=== PATIENT | female | born 1960 | race African-American/Black ===

== ENCOUNTER 2022-08-20 15:00 | Inpatient (IN) | payer SELFPAY ==
[2022-08-20] MEDS ORDERED: IPRATROPIUM-ALBUTEROL 3 ML NEB INHALATION STA (15:23)
[2022-08-20] MEDS ORDERED: MAGNESIUM SULFATE-D5W PMX 1 GM in DEXTROSE/WATER 1 100ML.BAG IVPB STA (15:23)
[2022-08-20 15:44] LABS: Basophils % (A) 1 %; Eosinophils % (A) 0 %; HCT 39.4 % (34.0-46.0); HGB 13.7 gm/dL (11.4-16.0); Lymphocytes # (A) 0.7 k/uL (1.0-4.8); Lymphocytes % (A) 12 %; MCH 27.5 pg (25.0-35.0); MCHC 34.6 g/dL (31.0-37.0); MCV 79.5 fL (80.0-100.0); Mean Platelet Volume 8.6; Monocytes # (A) 0.4 k/uL (0-1.0); Monocytes % (A) 7 %; Neutrophils # (A) 4.9 k/uL (1.3-7.7); Neutrophils % (A) 77 %; Platelet Count 184 k/uL (150-450); RBC 4.96 m/uL (3.80-5.40); RDW 14.4 % (11.5-15.5); WBC 6.4 k/uL (3.8-10.6)
[2022-08-20 15:51] LABS: ALT 43 U/L (4-34); AST 69 U/L (14-36); African American GFR (CKD) >90 (>60 ml/min/1.73 sqM); Albumin 4.2 g/dL (3.5-5.0); Alkaline Phosphatase 103 U/L (38-126); Anion Gap 8 mmol/L; Blood Urea Nitrogen 12 mg/dL (7-17); Calcium 8.9 mg/dL (8.4-10.2); Carbon Dioxide 28 mmol/L (22-30); Chloride 103 mmol/L (98-107); Glucose 113 mg/dL (74-99); Magnesium 1.9 mg/dL (1.6-2.3); Non-African American GFR(CKD) >90 (>60 ml/min/1.73 sqM); Potassium 3.7 mmol/L (3.5-5.1); Sodium 139 mmol/L (137-145); Total Bilirubin 0.3 mg/dL (0.2-1.3)
[2022-08-20 15:53] LABS: Partial Thromboplastin Time 24.9 sec (22.0-30.0); Prothrombin Time 10.3 sec (9.0-12.0)
--- NOTE | 2022-08-20 15:55 | XR ---
EXAMINATION TYPE: XR chest 2V DATE OF EXAM: 08/20/2022 COMPARISON: 12/20/2013 INDICATION: Difficulty in breathing x3 days TECHNIQUE: Frontal and lateral views of the chest are obtained. FINDINGS: The heart size is normal. The pulmonary vasculature is normal. Hyperinflation and flattening diaphragms compatible with COPD. Minimal bilateral costophrenic angle p leural effusions are present.. IMPRESSION: 1. Minimal bilateral pleural effusions. 2. COPD
--- NOTE | 2022-08-20 15:58 | ED ---
SOB HPI - General Chief Complaint: Shortness of Breath Stated Complaint: SOB Time Seen by Provider: 08/20/22 15:00 Source: patient, family, EMS, RN notes reviewed Mode of arrival: EMS Limitations: no limitations - History of Present Illness Initial Comments: 61-year-old female history of COPD who presents with complaints of 2 days of shortness of breath and progressively worse cough with green phlegm she's had fevers chills sweats no overt chest pain she has lightheadedness and dizziness when she tries to walk she also admits to decreased oral intake over the past couple days. Recent exposure to upper respiratory infection unsure whether: Bed at this time. She received IV slight Medrol as well as 2 DuoNeb treatments and route by paramedics. She is feeling slightly better. MD Complaint: shortness of breath, cough - Related Data Home Medications Medication Instructions Recorded Confirmed Guaifenesin/Dextromethorphan 20 ml PO Q4H PRN 08/20/22 08/20/22 [Robitussin Cough-Chest Dm Liq] Zinc Gluconate [Zinc] 50 mg PO DAILY 08/20/22 08/20/22 Allergies Allergy/AdvReac Type Severity Reaction Status Date / Time No Known Allergies Allergy Verified 08/20/22 15:20 Review of Systems ROS Statement: Those systems with pertinent positive or pertinent negative responses have been documented in the HPI. ROS Other: All systems not noted in ROS Statement are negative. Past Medical History Past Medical History: No Reported History Past Surgical History: No Surgical Hx Reported Past Psychological History: No Psychological Hx Reported Smoking Status: Current some day smoker Past Alcohol Use History: None Reported Past Drug Use History: Marijuana General Exam - General Exam Comments Initial Comments: This is a well-developed thin appearing female who is awake alert oriented 4 Limitations: no limitations General appearance: alert, anxious, in distress Head exam: Present: atraumatic, normocephalic, normal inspection Eye exam: Present: normal appearance, PERRL, EOMI. Absent: scleral icterus, conjunctival injection, periorbital swelling ENT exam: Present: mucous membranes dry Neck exam: Present: normal inspection, full ROM, other (No stridor JVD or bruits). Absent: tenderness, meningismus, lymphadenopathy Respiratory exam: Present: wheezes, accessory muscle use, decreased breath sounds, prolonged expiratory. Absent: respiratory distress, rales, rhonchi, s tridor Cardiovascular Exam: Present: regular rate, normal rhythm, normal heart sounds. Absent: systolic murmur, diastolic murmur, rubs, gallop, clicks GI/Abdominal exam: Present: soft, normal bowel sounds. Absent: distended, tenderness, guarding, rebound, rigid Extremities exam: Present: normal inspection, full ROM, normal capillary refill. Absent: tenderness, pedal edema, joint swelling, calf tenderness Back exam: Present: normal inspection Neurological exam: Present: alert, oriented X3, CN II-XII intact Psychiatric exam: Present: normal affect, normal mood Skin exam: Present: warm, dry, intact, normal color. Absent: rash Course Vital Signs 08/20/22 08/20/22 08/20/22 15:03 16:52 16:56 Temperature 97.8 F Pulse Rate 98 97 Respiratory 30 H 30 H 32 H Rate Blood Pressure 152/109 156/108 O2 Sat by Pulse 100 97 89 L Oximetry 08/20/22 08/20/22 16:59 17:09 Temperature Pulse Rate 97 95 Respiratory Rate Blood Pressure O2 Sat by Pulse Oximetry - Reevaluation(s) Reevaluation #1: 08/20/22 17:29 Evaluation the patient after initial treatment shows minimal improvement. Medical Decision Making - Lab Data Result diagrams: 08/20/22 15:14 08/20/22 15:14 Lab Results 08/20/22 08/20/22 08/20/22 Range/Units 15:14 15:14 15:14 WBC 6.4 (3.8-10.6) k/uL RBC 4.96 (3.80-5.40) m/uL Hgb 13.7 (11.4-16.0) gm/dL Hct 39.4 (34.0-46.0) % MCV 79.5 L (80.0-100.0) fL MCH 27.5 (25.0-35.0) pg MCHC 34.6 (31.0-37.0) g/dL RDW 14.4 (11.5-15.5) % Plt Count 184 (150-450) k/uL MPV 8.6 Neutrophils % 77 % Lymphocytes % 12 % Monocytes % 7 % Eosinophils % 0 % Basophils % 1 % Neutrophils # 4.9 (1.3-7.7) k/uL Lymphocytes # 0.7 L (1.0-4.8) k/uL Monocytes # 0.4 (0-1.0) k/uL Eosinophils # 0.0 (0-0.7) k/uL Basophils # 0.0 (0-0.2) k/uL PT 10.3 (9.0-12.0) sec INR 1.0 (<1.2) APTT 24.9 (22.0-30.0) sec D-Dimer 0.29 (<0.60) mg/L FEU Sodium 139 (137-145) mmol/L Potassium 3.7 (3.5-5.1) mmol/L Chloride 103 (98-107) mmol/L Carbon Dioxide 28 (22-30) mmol/L Anion Gap 8 mmol/L BUN 12 (7-17) mg/dL Creatinine 0.55 (0.52-1.04) mg/dL Est GFR (CKD-EPI)AfAm >90 (>60 ml/min/1.73 sqM) Est GFR (CKD-EPI)NonAf >90 (>60 ml/min/1.73 sqM) Glucose 113 H (74-99) mg/dL Plasma Lactic Acid Arturo (0.7-2.0) mmol/L Calcium 8.9 (8.4-10.2) mg/dL Magnesium 1.9 (1.6-2.3) mg/dL Total Bilirubin 0.3 (0.2-1.3) mg/dL AST 69 H (14-36) U/L ALT 43 H (4-34) U/L Alkaline Phosphatase 103 (38-126) U/L Troponin I (0.000-0.034) ng/mL NT-Pro-B Natriuret Pep pg/mL Total Protein 7.0 (6.3-8.2) g/dL Albumin 4.2 (3.5-5.0) g/dL Coronavirus (PCR) (Not Detectd) Influenza Type A RNA (Not Detectd) Influenza Type B (PCR) (Not Detectd) 08/20/22 08/20/22 08/20/22 Range/Units 15:14 15:14 15:14 WBC (3.8-10.6) k/uL RBC (3.80-5.40) m/uL Hgb (11.4-16.0) gm/dL Hct (34.0-46.0) % MCV (80.0-100.0) fL MCH (25.0-35.0) pg MCHC (31.0-37.0) g/dL RDW (11.5-15.5) % Plt Count (150-450) k/uL MPV Neutrophils % % Lymphocytes % % Monocytes % % Eosinophils % % Basophils % % Neutrophils # (1.3-7.7) k/uL Lymphocytes # (1.0-4.8) k/uL Monocytes # (0-1.0) k/uL Eosinophils # (0-0.7) k/uL Basophils # (0-0.2) k/uL PT (9.0-12.0) sec INR (<1.2) APTT (22.0-30.0) sec D-Dimer (<0.60) mg/L FEU Sodium (137-145) mmol/L Potassium (3.5-5.1) mmol/L Chloride (98-107) mmol/L Carbon Dioxide (22-30) mmol/L Anion Gap mmol/L BUN (7-17) mg/dL Creatinine (0.52-1.04) mg/dL Est GFR (CKD-EPI)AfAm (>60 ml/min/1.73 sqM) Est GFR (CKD-EPI)NonAf (>60 ml/min/1.73 sqM) Glucose (74-99) mg/dL Plasma Lactic Acid Arturo 1.0 (0.7-2.0) mmol/L Calcium (8.4-10.2) mg/dL Magnesium (1.6-2.3) mg/dL Total Bilirubin (0.2-1.3) mg/dL AST (14-36) U/L ALT (4-34) U/L Alkaline Phosphatase (38-126) U/L Troponin I <0.012 (0.000-0.034) ng/mL NT-Pro-B Natriuret Pep 125 pg/mL Total Protein (6.3-8.2) g/dL Albumin (3.5-5.0) g/dL Coronavirus (PCR) (Not Detectd) Influenza Type A RNA (Not Detectd) Influenza Type B (PCR) (Not Detectd) 08/20/22 08/20/22 Range/Units 15:33 15:33 WBC (3.8-10.6) k/uL RBC (3.80-5.40) m/uL Hgb (11.4-16.0) gm/dL Hct (34.0-46.0) % MCV (80.0-100.0) fL MCH (25.0-35.0) pg MCHC (31.0-37.0) g/dL RDW (11.5-15.5) % Plt Count (150-450) k/uL MPV Neutrophils % % Lymphocytes % % Monocytes % % Eosinophils % % Basophils % % Neutrophils # (1.3-7.7) k/uL Lymphocytes # (1.0-4.8) k/uL Monocytes # (0-1.0) k/uL Eosinophils # (0-0.7) k/uL Basophils # (0-0.2) k/uL PT (9.0-12.0) sec INR (<1.2) APTT (22.0-30.0) sec D-Dimer (<0.60) mg/L FEU Sodium (137-145) mmol/L Potassium (3.5-5.1) mmol/L Chloride (98-107) mmol/L Carbon Dioxide (22-30) mmol/L Anion Gap mmol/L BUN (7-17) mg/dL Creatinine (0.52-1.04) mg/dL Est GFR (CKD-EPI)AfAm (>60 ml/min/1.73 sqM) Est GFR (CKD-EPI)NonAf (>60 ml/min/1.73 sqM) Glucose (74-99) mg/dL Plasma Lactic Acid Arturo (0.7-2.0) mmol/L Calcium (8.4-10.2) mg/dL Magnesium (1.6-2.3) mg/dL Total Bilirubin (0.2-1.3) mg/dL AST (14-36) U/L ALT (4-34) U/L Alkaline Phosphatase (38-126) U/L Troponin I (0.000-0.034) ng/mL NT-Pro-B Natriuret Pep pg/mL Total Protein (6.3-8.2) g/dL Albumin (3.5-5.0) g/dL Coronavirus (PCR) Not Detected (Not Detectd) Influenza Type A RNA Detected H (Not Detectd) Influenza Type B (PCR) Not Detected (Not Detectd) - EKG Data -: EKG Interpreted by Me EKG Comments: EKG interpreted by me shows a sinus rhythm with her. Interval rate was 95. Interval 100 QRS duration 77 QT since QTC 331/334 borderline right asked deviation nonspecific ST configuration artifact present. - Radiology Data Interpreted by me: I did interpret the imaging wished demonstrate no definitive evidence of acute processes. Critical Care Time Critical Care Time: Yes Total Critical Care Time: 39 Critical Care Time: Critical care time includes initial presentation with history physical labs x- rays discussed with paramedics upon arrival discussed with patient family members upon arrival repeated evaluations the patient response to therapy review of old charting was available discussed with the main physician admission orders and documentation of the above Disposition Clinical Impression: Acute exacerbation of chronic obstructive pulmonary disease, Influenza A, Hypoxemia Disposition: ADMITTED IP TO THIS [facility] Condition: Fair Referrals: None,Stated [Primary Care Provider] - 1-2 days Decision Date: 08/20/22 Decision Time: 17:32
[2022-08-20] MEDS ORDERED: LORazepam 1 MG TAB PO STA (16:00)
[2022-08-20] MEDS ORDERED: guaiFENesin-Coden 100-10MG/5ML 10 ML CUP PO PRN (17:33)
[2022-08-20] MEDS ORDERED: NALOXONE 0.4 MG/ML 1 ML VIAL IVP PRN (17:33)
[2022-08-20] MEDS: methylPREDNISolone SOD SUCCI 125 MG/2 ML VIAL IV SCH (17:42)
[2022-08-20] MEDS: DOXYCYCLINE 100 MG CAP PO SCH (20:35)
[2022-08-21] MEDS: IPRATROPIUM-ALBUTEROL 3 ML NEB INHALATION PRN ×3 (00:49→11:18)
[2022-08-21] MEDS: methylPREDNISolone SOD SUCCI 125 MG/2 ML VIAL IV SCH ×5 (02:00→23:23)
[2022-08-21] MEDS: ACETAMINOPHEN TAB 325 MG TAB PO PRN (03:01)
[2022-08-21] MEDS ORDERED: guaiFENesin-DM 100-10MG/5ML 10 ML CUP PO PRN (06:28)
[2022-08-21] MEDS: ZINC SULFATE 220 MG CAP PO SCH (08:33)
[2022-08-21] MEDS: DOXYCYCLINE 100 MG CAP PO SCH ×2 (08:33→20:54)
[2022-08-21 10:16] VITALS: BMI 18.6
[2022-08-21] MEDS: HYDROcodone/APAP 5-325MG 1 EACH TAB PO PRN ×2 (12:06→20:59)
[2022-08-21] MEDS: OSELTAMIVIR 75 MG CAP PO SCH ×2 (12:09→20:54)
--- NOTE | 2022-08-21 12:29 | P.HPIM ---
History of Present Illness 61-year-old gentleman female came in with a known history of COPD came in with compensative shortness of breath which is going on for 2 days patient is found to have influenza A patient is on the high flow nasal cannula/ airvo oxygen at this time, patient usually doesn't wear oxygen patient to quit smoking does smoke occasionally 1 cigarettes here and there. Patient doesn't take any home medications. Patient is afebrile doesn't have any leukocytosis. Chest x-ray showed minimal bilateral pleural effusions and the emphysematous changes. REVIEW OF SYSTEMS: CONSTITUTIONAL: No fever, no malaise, no fatigue. HEENT: No recent visual problems or hearing problems. Denied any sore throat. CARDIOVASCULAR: No chest pain, orthopnea, PND, no palpitations, no syncope. PULMONARY: no hemoptysis. GASTROINTESTINAL: No diarrhea, no nausea, no vomiting, no abdominal pain. NEUROLOGICAL: No headaches, no weakness, no numbness. HEMATOLOGICAL: Denies any bleeding or petechiae. GENITOURINARY: Denies any burning micturition, frequency, or urgency. MUSCULOSKELETAL/RHEUMATOLOGICAL: Denies any joint pain, swelling, or any muscle pain. ENDOCRINE: Denies any polyuria or polydipsia. The rest of the 14-point review of systems is negative. PHYSICAL EXAMINATION: GENERAL: The patient is alert and oriented x3, not in any acute distress. Well developed, well nourished. HEENT: Pupils are round and equally reacting to light. EOMI. No scleral icterus. No conjunctival pallor. Normocephalic, atraumatic. No pharyngeal erythema. No thyromegaly. CARDIOVASCULAR: S1 and S2 present. No murmurs, rubs, or gallops. PULMONARY: Diminished air entry into bilateral lung lewis no wheezing or crackles. ABDOMEN: Soft, nontender, nondistended, normoactive bowel sounds. No palpable organomegaly. MUSCULOSKELETAL: No joint swelling or deformity. EXTREMITIES: No cyanosis, clubbing, or pedal edema. NEUROLOGICAL: Gross neurological examination did not reveal any focal deficits. SKIN: No rashes. Assessment and plan -Acute hypoxic respiratory failure secondary to severe COPD exacerbation patient is on empiric antibiotic for secondary bacterial infection patient is also on Tamiflu continue with respiratory support wean off oxygen as tolerated continue with systemic steroids., Inhalational treatments. -Tracheobronchitis mostly while possible TIA of bacteremia cannot be excluded -Nicotine use: Counseling was provided patient a very quit smoking with does smoke occasionally DVT prophylaxis: Lovenox GI prophylaxis: Pepcid Past Medical History Past Medical History: No Reported History, Asthma Additional Past Medical History / Comment(s): COVID 19 infection (february 2022) and she is vaccinated with JJ x1 Past Surgical History: No Surgical Hx Reported Past Psychological History: No Psychological Hx Reported Smoking Status: Current some day smoker (started smoking at the age of 19 and s he was smoking 1/2 PPD and her last smoke was 3 days ago) Past Alcohol Use History: None Reported Past Drug Use History: Marijuana (smoke 1 joint every PM) Medications and Allergies Home Medications Medication Instructions Recorded Confirmed Type Guaifenesin/Dextromethorphan 20 ml PO Q4H PRN 08/20/22 08/20/22 History [Robitussin Cough-Chest Dm Liq] Zinc Gluconate [Zinc] 50 mg PO DAILY 08/20/22 08/20/22 History Allergies Allergy/AdvReac Type Severity Reaction Status Date / Time No Known Allergies Allergy Verified 08/20/22 15:20 Physical Exam Vitals: Vital Signs Temp Pulse Pulse Resp BP BP Pulse Ox 08/21/22 12:13 102 H 29 H 131/89 97 08/21/22 11:31 98 08/21/22 11:19 85 97 08/21/22 08:41 28 H 97 08/21/22 08:28 93 28 H 146/101 99 08/21/22 07:20 82 08/21/22 03:30 08/21/22 03:10 98 F 86 28 H 171/111 100 08/21/22 01:50 08/21/22 01:27 08/21/22 01:10 100 08/21/22 00:50 96 08/21/22 00:00 97.7 F 85 20 113/78 100 08/20/22 20:00 97.4 F L 96 26 H 153/112 99 08/20/22 19:34 08/20/22 18:40 08/20/22 18:00 92 27 H 153/118 97 08/20/22 17:09 95 08/20/22 16:59 97 08/20/22 16:56 32 H 89 L 08/20/22 16:52 97 30 H 156/108 97 08/20/22 15:03 97.8 F 98 30 H 152/109 100 FiO2 08/21/22 12:13 08/21/22 11:31 08/21/22 11:19 35 08/21/22 08:41 08/21/22 08:28 08/21/22 07:20 40 08/21/22 03:30 40 08/21/22 03:10 08/21/22 01:50 40 08/21/22 01:27 35 08/21/22 01:10 08/21/22 00:50 40 08/21/22 00:00 08/20/22 20:00 08/20/22 19:34 40 08/20/22 18:40 40 08/20/22 18:00 08/20/22 17:09 08/20/22 16:59 08/20/22 16:56 08/20/22 16:52 08/20/22 15:03 Intake and Output 08/20/22 08/21/22 08/21/22 22:59 06:59 14:59 Intake Total 600 Balance 600 Intake: Oral 600 Other: Voiding Method Bedpan Bedpan Toilet # Voids 1 Weight 52.163 kg 52.163 kg Results CBC & Chem 7: 08/20/22 15:14 08/20/22 15:14 Labs: Abnormal Lab Results - Last 24 Hours (Table) 08/20/22 08/20/22 08/20/22 Range/Units 15:14 15:14 15:33 MCV 79.5 L (80.0-100.0) fL Lymphocytes # 0.7 L (1.0-4.8) k/uL Glucose 113 H (74-99) mg/dL AST 69 H (14-36) U/L ALT 43 H (4-34) U/L Influenza Type A RNA Detected H (Not Detectd)
--- NOTE | 2022-08-21 13:48 | P.CNPUL ---
History of Present Illness Consult date: 08/21/22 Reason for consult: dyspnea History of present illness: A 61-year-old -[place] female patient, chronic smoker with known history of COPD with is not using any form of maintenance as for medications on outpatient basis. The patient has been smoking since young age and her last cigarette was she days ago. She does not utilize home O2. She states that her condition was essentially stable and she was having some mild exertional dyspnea still around several family members at home came down with a flu. The patient herself felt sick around 3 days ago and condition progressively got worse and currently she is coming into the hospital with increasing dyspnea, chest tightness and wheezing. She was found to be in significant respiratory distress. Initially placed on a BiPAP and currently she is on high flow oxygen at 50 L with an FiO2 of 35%. She is feeling better although she is still bronchospastic and wheezy. She has a congested cough. No altered mentation. Chest wall pain has been so due to coughing. The patient had a chest x-ray that showed hyperinflation. No acute airspace disease. ProBNP is nonelevated. Card iac enzymes are normal. The WBC count at 6.4 with a hemoglobin 13.7 and a platelet count of 184. D-dimer is at 0.29. Normal coagulation profile. Normal electrolytes. Normal renal function. Her influenza a was positive by PCR. Covid 19 testing is negative and the patient has received Covid 19 vaccination 1 which was in the form of a [employer]. She was infected also with Covid 19 in the past. RSV has not been checked yet. Review of Systems Constitutional: Reports fatigue, Reports weakness Eyes: denies as per HPI, denies blurred vision, denies bulging eye, denies decreased vision, denies diplopia, denies discharge, denies dry eye, denies irritation, denies itching, denies pain, denies photophobia, denies loss of peripheral vision, denies loss of vision, denies tunnel vision/blind spots Ears: deny: decreased hearing, ear discharge, earache, tinnitus Ears, nose, mouth and throat: Reports as per HPI Breasts: absent: as per HPI, change in shape, gynecomastia, masses, nipple discharge, pain, skin changes, swelling Cardiovascular: Reports decreased exercise tolerance, Reports dyspnea on exertion Respiratory: Reports cough, Reports dyspnea, Reports wheezing Gastrointestinal: Reports as per HPI Genitourinary: Reports as per HPI Menstruation: Reports as per HPI Musculoskeletal: Reports as per HPI Musculoskeletal: absent: ankle pain, ankle stiffness, ankle swelling, as per HPI, elbow pain, elbow stiffness, elbow swelling, foot pain, foot stiffness, foot swelling, hand pain, hand stiffness, hand swelling, hip pain, hip stiffness, hip swelling, knee pain, knee stiffness, knee swelling, shoulder pain, shoulder stiffness, shoulder swelling, wrist pain, wrist stiffness, wrist swelling Neurological: Reports as per HPI Psychiatric: Reports as per HPI Endocrine: Reports as per HPI Hematologic/Lymphatic: Reports as per HPI Allergic/Immunologic: Reports as per HPI Past Medical History Past Medical History: No Reported History, Asthma Additional Past Medical History / Comment(s): COVID 19 infection (february 2022) and she is vaccinated with JJ x1 Past Surgical History: No Surgical Hx Reported Past Psychological History: No Psychological Hx Reported Smoking Status: Current some day smoker (started smoking at the age of 19 and she was smoking 1/2 PPD and her last smoke was 3 days ago) Past Alcohol Use History: None Reported Past Drug Use History: Marijuana (smoke 1 joint every PM) Medications and Allergies Home Medications Medication Instructions Recorded Confirmed Type Guaifenesin/Dextromethorphan 20 ml PO Q4H PRN 08/20/22 08/20/22 History [Robitussin Cough-Chest Dm Liq] Zinc Gluconate [Zinc] 50 mg PO DAILY 08/20/22 08/20/22 History Allergies Allergy/AdvReac Type Severity Reaction Status Date / Time No Known Allergies Allergy Verified 08/20/22 15:20 Physical Exam Vitals: Vital Signs Temp Pulse Pulse Resp BP BP Pulse Ox 08/21/22 11:31 98 08/21/22 11:19 85 97 08/21/22 08:41 28 H 97 08/21/22 08:28 93 28 H 146/101 99 08/21/22 07:20 82 08/21/22 03:30 08/21/22 03:10 98 F 86 28 H 171/111 100 08/21/22 01:50 08/21/22 01:27 08/21/22 01:10 100 08/21/22 00:50 96 08/21/22 00:00 97.7 F 85 20 113/78 100 08/20/22 20:00 97.4 F L 96 26 H 153/112 99 08/20/22 19:34 08/20/22 18:40 08/20/22 18:00 92 27 H 153/118 97 08/20/22 17:09 95 08/20/22 16:59 97 08/20/22 16:56 32 H 89 L 08/20/22 16:52 97 30 H 156/108 97 08/20/22 15:03 97.8 F 98 30 H 152/109 100 FiO2 08/21/22 11:31 08/21/22 11:19 35 08/21/22 08:41 08/21/22 08:28 08/21/22 07:20 40 08/21/22 03:30 40 08/21/22 03:10 08/21/22 01:50 40 08/21/22 01:27 35 08/21/22 01:10 08/21/22 00:50 40 08/21/22 00:00 08/20/22 20:00 08/20/22 19:34 40 08/20/22 18:40 40 08/20/22 18:00 08/20/22 17:09 08/20/22 16:59 08/20/22 16:56 08/20/22 16:52 08/20/22 15:03 Intake and Output 08/20/22 08/21/22 08/21/22 22:59 06:59 14:59 Intake Total 600 Balance 600 Intake: Oral 600 Other: Voiding Method Bedpan Bedpan Toilet # Voids 1 Weight 52.163 kg 52.163 kg Calm and comfortable, able to complete full sentences. She is not using his muscles of breathing. She remains on high flow oxygen. Head exam was generally normal. There was no scleral icterus or corneal arcus. Mucous membranes were moist. Neck was supple and without jugular venous distension, thyromegaly, or carotid bruits. Carotids were easily palpable bilaterally. There was no adenopathy. Lungs sounds are showing marked diminished breath sounds bilaterally along with prolongation of exhalation phase of breathing and diffuse bronchospasm and wheeze Cardiac exam revealed the PMI to be normally situated and sized. The rhythm was regular and no extrasystoles were noted during several minutes of auscultation. The first and second heart sounds were normal and physiologic splitting of the second heart sound was noted. There were no murmurs, rubs, clicks, or gallops. Abdominal exam revealed normal bowel sounds. The abdomen was soft, non-tender, and without masses, organomegaly, or appreciable enlargement of the abdominal aorta. Examination of the extremities revealed easily palpable radial, femoral and pedal pulses. There was no cyanosis, clubbing or edema. Examination of the skin revealed no evidence of significant rashes, suspicious appearing nevi or other concerning lesions. Neurologically, the patient is awake and alert and the patient does not have any focal neurological deficit. Cranial nerves are essentially intact. Results - Laboratory Findings CBC and BMP: 08/20/22 15:14 08/20/22 15:14 ABG WBC 6.4 k/uL (3.8-10.6) 08/20/22 15:14 RBC 4.96 m/uL (3.80-5.40) 08/20/22 15:14 Hgb 13.7 gm/dL (11.4-16.0) 08/20/22 15:14 Hct 39.4 % (34.0-46.0) 08/20/22 15:14 MCV 79.5 fL (80.0-100.0) L 08/20/22 15:14 MCH 27.5 pg (25.0-35.0) 08/20/22 15:14 MCHC 34.6 g/dL (31.0-37.0) 08/20/22 15:14 RDW 14.4 % (11.5-15.5) 08/20/22 15:14 Plt Count 184 k/uL (150-450) 08/20/22 15:14 MPV 8.6 08/20/22 15:14 Neutrophils % 77 % 08/20/22 15:14 Lymphocytes % 12 % 08/20/22 15:14 Monocytes % 7 % 08/20/22 15:14 Eosinophils % 0 % 08/20/22 15:14 Basophils % 1 % 08/20/22 15:14 Neutrophils # 4.9 k/uL (1.3-7.7) 08/20/22 15:14 Lymphocytes # 0.7 k/uL (1.0-4.8) L 08/20/22 15:14 Monocytes # 0.4 k/uL (0-1.0) 08/20/22 15:14 Eosinophils # 0.0 k/uL (0-0.7) 08/20/22 15:14 Basophils # 0.0 k/uL (0-0.2) 08/20/22 15:14 PT 10.3 sec (9.0-12.0) 08/20/22 15:14 INR 1.0 (<1.2) 08/20/22 15:14 APTT 24.9 sec (22.0-30.0) 08/20/22 15:14 D-Dimer 0.29 mg/L FEU (<0.60) 08/20/22 15:14 Sodium 139 mmol/L (137-145) 08/20/22 15:14 Potassium 3.7 mmol/L (3.5-5.1) 08/20/22 15:14 Chloride 103 mmol/L (98-107) 08/20/22 15:14 Carbon Dioxide 28 mmol/L (22-30) 08/20/22 15:14 Anion Gap 8 mmol/L 08/20/22 15:14 BUN 12 mg/dL (7-17) 08/20/22 15:14 Creatinine 0.55 mg/dL (0.52-1.04) 08/20/22 15:14 Est GFR (CKD-EPI)AfAm >90 (>60 ml/min/1.73 sqM) 08/20/22 15:14 Est GFR (CKD-EPI)NonAf >90 (>60 ml/min/1.73 sqM) 08/20/22 15:14 Glucose 113 mg/dL (74-99) H 08/20/22 15:14 Plasma Lactic Acid Arturo 1.0 mmol/L (0.7-2.0) 08/20/22 15:14 Calcium 8.9 mg/dL (8.4-10.2) 08/20/22 15:14 Magnesium 1.9 mg/dL (1.6-2.3) 08/20/22 15:14 Total Bilirubin 0.3 mg/dL (0.2-1.3) 08/20/22 15:14 AST 69 U/L (14-36) H 08/20/22 15:14 ALT 43 U/L (4-34) H 08/20/22 15:14 Alkaline Phosphatase 103 U/L (38-126) 08/20/22 15:14 Troponin I <0.012 ng/mL (0.000-0.034) 08/20/22 15:14 NT-Pro-B Natriuret Pep 125 pg/mL 08/20/22 15:14 Total Protein 7.0 g/dL (6.3-8.2) 08/20/22 15:14 Albumin 4.2 g/dL (3.5-5.0) 08/20/22 15:14 Coronavirus (PCR) Not Detected (Not Detectd) 08/20/22 15:33 Influenza Type A RNA Detected (Not Detectd) H 08/20/22 15:33 Influenza Type B (PCR) Not Detected (Not Detectd) 08/20/22 15:33 PT/INR, D-dimer PT 10.3 sec (9.0-12.0) 08/20/22 15:14 INR 1.0 (<1.2) 08/20/22 15:14 D-Dimer 0.29 mg/L FEU (<0.60) 08/20/22 15:14 Abnormal lab findings: Abnormal Labs 08/20/22 08/20/22 08/20/22 15:14 15:14 15:33 MCV 79.5 L Lymphocytes # 0.7 L Glucose 113 H AST 69 H ALT 43 H Influenza Type A RNA Detected H - Diagnostic Findings Chest x-ray: image reviewed Assessment and Plan Plan: Acute COPD exacerbation secondary to influenza A-tracheobronchitis Acute hypoxic respiratory failure, initially BiPAP currently on high flow oxygen at 50 L with an FiO2 of 35% Acute influenza A tracheobronchitis. Noted the patient is nonvaccinated Shortness of breath secondary to above History of smoking tobacco History of daily marijuana smoking Self-reported asthma Plan Start the patient on DuoNeb nebulized treatments 4 times a day [id number] Keep the patient on high flow oxygen and titrate the flow to maintain a satur ation above 90% Start the patient on IV Solu-Medrol 60 mg every 6 hours Start the patient on Tamiflu 75 mg by mouth twice a day Robitussin-DM for cough and congestion Check pro calcitonin level Lovenox for DVT prophylaxis Smoking cessation counseling Will follow
[2022-08-21] MEDS: IPRATROPIUM-ALBUTEROL 3 ML NEB INHALATION SCH ×2 (15:36→21:39)
[2022-08-21] MEDS: FAMOTIDINE 20 MG TAB PO SCH ×2 (16:22→20:55)
[2022-08-21 20:09] LABS: Glucose,Whole Blood 141 mg/dL (70-110)
[2022-08-22 06:42] LABS: Glucose,Whole Blood 125 mg/dL (70-110)
[2022-08-22] MEDS: methylPREDNISolone SOD SUCCI 125 MG/2 ML VIAL IV SCH ×4 (06:55→23:43)
[2022-08-22] MEDS: IPRATROPIUM-ALBUTEROL 3 ML NEB INHALATION SCH ×4 (08:01→21:02)
[2022-08-22] MEDS: DOXYCYCLINE 100 MG CAP PO SCH ×2 (08:57→21:13)
[2022-08-22] MEDS: FAMOTIDINE 20 MG TAB PO SCH ×2 (08:57→21:13)
[2022-08-22] MEDS: ZINC SULFATE 220 MG CAP PO SCH (08:57)
[2022-08-22] MEDS: ENOXAPARIN 40 MG/0.4 ML SYRINGE SQ SCH (08:57)
[2022-08-22] MEDS: OSELTAMIVIR 75 MG CAP PO SCH ×2 (09:33→21:13)
[2022-08-22 11:58] LABS: Glucose,Whole Blood 138 mg/dL (70-110)
--- NOTE | 2022-08-22 12:41 | P.PN ---
Subjective 61-year-old gentleman female came in with a known history of COPD came in with compensative shortness of breath which is going on for 2 days patient is found to have influenza A patient is on the high flow nasal cannula/ airvo oxygen at this time, patient usually doesn't wear oxygen patient to quit smoking does smoke occasionally 1 cigarettes here and there. Patient doesn't take any home medications. Patient is afebrile doesn't have any leukocytosis. Chest x-ray showed minimal bilateral pleural effusions and the emphysematous changes. 08/22/2022 Patient hasn't been improvement in her overall clinical status, on high flow nasal cannula oxygen. Still remains on high flow at this time. Constitutional: Denied any fatigue denied any fever. Cardio vascular: denied any chest pain, palpitations Gastrointestinal denied any nausea vomiting Pulmonary: Feels much better today Neurologic denied any new focal deficits All inpatient medications were reviewed and appropriate changes in these medications as dictated in the interval history and assessment and plan. PHYSICAL EXAMINATION: GENERAL: The patient is alert and oriented x3, not in any acute distress. Well developed, well nourished. HEENT: Pupils are round and equally reacting to light. EOMI. No scleral icterus. No conjunctival pallor. Normocephalic, atraumatic. No pharyngeal erythema. No thyromegaly. CARDIOVASCULAR: S1 and S2 present. No murmurs, rubs, or gallops. PULMONARY: Diminished air entry into bilateral lung lewis no wheezing or crackles. ABDOMEN: Soft, nontender, nondistended, normoactive bowel sounds. No palpable organomegaly. MUSCULOSKELETAL: No joint swelling or deformity. EXTREMITIES: No cyanosis, clubbing, or pedal edema. NEUROLOGICAL: Gross neurological examination did not reveal any focal deficits. SKIN: No rashes. Assessment and plan -Acute hypoxic respiratory failure secondary to severe COPD exacerbation patient is on empiric antibiotic for secondary bacterial infection patient is also on Tamiflu continue with respiratory support wean off oxygen as tolerated continue with systemic steroids., Inhalational treatments. -Tracheobronchitis mostly while possible TIA of bacteremia cannot be excluded -Nicotine use: Counseling was provided patient a very quit smoking with does smoke occasionally DVT prophylaxis: Lovenox GI prophylaxis: Pepcid Objective - Vital Signs Vital signs: Vital Signs Temp 97.9 F 08/22/22 03:44 Pulse 88 08/22/22 12:04 Resp 18 08/22/22 08:55 BP 130/91 08/22/22 08:55 Pulse Ox 96 08/22/22 08:55 FiO2 40 08/22/22 11:56 Intake & Output 08/21/22 08/22/22 08/22/22 18:59 06:59 18:59 Weight 52.163 kg Other: Voiding Method Bedside Commode Bedside Commode Bedside Commode # Voids 3 1 - Labs CBC & Chem 7: 08/20/22 15:14 08/20/22 15:14 Labs: Abnormal Lab Results - Last 24 Hours (Table) 08/21/22 08/21/22 08/22/22 Range/Units 11:40 20:07 06:41 POC Glucose (mg/dL) 141 H 125 H (70-110) mg/dL Procalcitonin 0.28 H (0.02-0.09) ng/mL 08/22/22 Range/Units 11:55 POC Glucose (mg/dL) 138 H (70-110) mg/dL Procalcitonin (0.02-0.09) ng/mL Microbiology - Last 24 Hours (Table) 08/20/22 15:20 Blood Culture - Preliminary Blood No Growth after 24 hours 08/20/22 15:05 Blood Culture - Preliminary Blood No Growth after 24 hours
[2022-08-22] MEDS: HYDROcodone/APAP 5-325MG 1 EACH TAB PO PRN (16:32)
[2022-08-22 17:00] LABS: Glucose,Whole Blood 166 mg/dL (70-110)
--- NOTE | 2022-08-22 17:07 | P.PN ---
Subjective Progress Note Date: 08/22/22 A 61-year-old -[place] female patient, chronic smoker with known history of COPD with is not using any form of maintenance as for medications on outpatient basis. The patient has been smoking since young age and her last cigarette was she days ago. She does not utilize home O2. She states that her condition was essentially stable and she was having some mild exertional dyspnea still around several family members at home came down with a flu. The patient herself felt sick around 3 days ago and condition progressively got worse and currently she is coming into the hospital with increasing dyspnea, chest tightness and wheezing. She was found to be in significant respiratory distress. Initially placed on a BiPAP and currently she is on high flow oxygen at 50 L with an FiO2 of 35%. She is feeling better although she is still bronchospastic and wheezy. She has a congested cough. No altered mentation. Chest wall pain has been so due to coughing. The patient had a chest x-ray that showed hyperinflation. No acute airspace disease. ProBNP is nonelevated. Cardiac enzymes are normal. The WBC count at 6.4 with a hemoglobin 13.7 and a platelet count of 184. D-dimer is at 0.29. Normal coagulation profile. Normal electrolytes. Normal renal function. Her influenza a was positive by PCR. Covid 19 testing is negative and the patient has received Covid 19 vaccination 1 which was in the form of a [employer]. She was infected also with Covid 19 in the past. RSV has not been checked yet. On today's evaluation of 08/22/2022, the patient is feeling slightly better compared to yesterday. She remains on high flow oxygen and currently she is on 40 L with an FiO2 of 40%. Somewhat improved compared to yesterday. Is able to complete full sentences. Remains essentially unchanged same treatment. No new complaints. He remains on Tamiflu. Remains on doxycycline. Remains on IV Solu-Medrol. Objective - Vital Signs Vital signs: Vital Signs Temp 98.0 F 08/22/22 12:56 Pulse 97 08/22/22 16:31 Resp 20 08/22/22 16:31 BP 123/84 08/22/22 16:31 Pulse Ox 97 08/22/22 16:31 FiO2 40 08/22/22 11:56 Intake & Output 12/08/22/22 08/22/22 18:59 06:59 18:59 Weight 52.163 kg Other: Voiding Method Bedside Commode Bedside Commode Bedside Commode # Voids 3 1 2 - Exam Calm and comfortable, able to complete full sentences. She is not using his muscles of breathing. She remains on high flow oxygen. Head exam was generally normal. There was no scleral icterus or corneal arcus. Mucous membranes were moist. Neck was supple and without jugular venous distension, thyromegaly, or carotid bruits. Carotids were easily palpable bilaterally. There was no adenopathy. Lungs sounds are showing marked diminished breath sounds bilaterally along with prolongation of exhalation phase of breathing and diffuse bronchospasm and wheeze Cardiac exam revealed the PMI to be normally situated and sized. The rhythm was regular and no extrasystoles were noted during several minutes of auscultation. The first and second heart sounds were normal and physiologic splitting of the second heart sound was noted. There were no murmurs, rubs, clicks, or gallops. Abdominal exam revealed normal bowel sounds. The abdomen was soft, non-tender, and without masses, organomegaly, or appreciable enlargement of the abdominal aorta. Examination of the extremities revealed easily palpable radial, femoral and pedal pulses. There was no cyanosis, clubbing or edema. Examination of the skin revealed no evidence of significant rashes, suspicious appearing nevi or other concerning lesions. Neurologically, the patient is awake and alert and the patient does not have any focal neurological deficit. Cranial nerves are essentially intact. - Labs CBC & Chem 7: 08/20/22 15:14 08/20/22 15:14 Labs: Abnormal Lab Results - Last 24 Hours (Table) 08/21/22 08/21/22 08/22/22 Range/Units 11:40 20:07 06:41 POC Glucose (mg/dL) 141 H 125 H (70-110) mg/dL Procalcitonin 0.28 H (0.02-0.09) ng/mL 08/22/22 08/22/22 Range/Units 11:55 16:58 POC Glucose (mg/dL) 138 H 166 H (70-110) mg/dL Procalcitonin (0.02-0.09) ng/mL Microbiology - Last 24 Hours (Table) 08/20/22 15:20 Blood Culture - Preliminary Blood No Growth after 24 hours 08/20/22 15:05 Blood Culture - Preliminary Blood No Growth after 24 hours Assessment and Plan Plan: Acute COPD exacerbation secondary to influenza A-tracheobronchitis Acute hypoxic respiratory failure, initially BiPAP currently on high flow oxygen at 40 L with an FiO2 of 40% Acute influenza A tracheobronchitis. Noted the patient is nonvaccinated Shortness of breath secondary to above History of smoking tobacco History of daily marijuana smoking Self-reported asthma Plan slightly improved compared to yesterday Continue high flow oxygen Start the patient on DuoNeb nebulized treatments 4 times a day [id number] Keep the patient on high flow oxygen and titrate the flow to maintain a saturation above 90% Start the patient on IV Solu-Medrol 60 mg every 6 hours Start the patient on Tamiflu 75 mg by mouth twice a day Robitussin-DM for cough and congestion Check pro calcitonin leveland the level came back at 0.28 Lovenox for DVT prophylaxis Smoking cessation counseling Will follow
[2022-08-22 20:38] LABS: Glucose,Whole Blood 155 mg/dL (70-110)
[2022-08-23 06:04] LABS: Glucose,Whole Blood 133 mg/dL (70-110)
[2022-08-23] MEDS: HYDROcodone/APAP 5-325MG 1 EACH TAB PO PRN (06:34)
[2022-08-23] MEDS: methylPREDNISolone SOD SUCCI 125 MG/2 ML VIAL IV SCH ×4 (06:35→23:23)
[2022-08-23] MEDS: IPRATROPIUM-ALBUTEROL 3 ML NEB INHALATION SCH ×4 (08:02→21:08)
[2022-08-23] MEDS: OSELTAMIVIR 75 MG CAP PO SCH ×2 (08:32→20:21)
[2022-08-23] MEDS: ZINC SULFATE 220 MG CAP PO SCH (08:32)
[2022-08-23] MEDS: DOXYCYCLINE 100 MG CAP PO SCH ×2 (08:32→20:21)
[2022-08-23] MEDS: FAMOTIDINE 20 MG TAB PO SCH ×2 (08:32→20:21)
[2022-08-23] MEDS: ENOXAPARIN 40 MG/0.4 ML SYRINGE SQ SCH (08:32)
[2022-08-23 11:49] LABS: Glucose,Whole Blood 136 mg/dL (70-110)
--- NOTE | 2022-08-23 13:43 | P.PN ---
Subjective Progress Note Date: 08/23/22 A 61-year-old -[place]anish female patient, chronic smoker with known history of COPD with is not using any form of maintenance as for medications on outpatient basis. The patient has been smoking since young age and her last cigarette was she days ago. She does not utilize home O2. She states that her condition was essentially stable and she was having some mild exertional dyspnea still around several family members at home came down with a flu. The patient herself felt sick around 3 days ago and condition progressively got worse and currently she is coming into the hospital with increasing dyspnea, chest tightness and wheezing. She was found to be in significant respiratory distress. Initially placed on a BiPAP and currently she is on high flow oxygen at 50 L with an FiO2 of 35%. She is feeling better although she is still bronchospastic and wheezy. She has a congested cough. No altered mentation. Chest wall pain has been so due to coughing. The patient had a chest x-ray that showed hyperinflation. No acute airspace disease. ProBNP is nonelevated. Cardiac enzymes are normal. The WBC count at 6.4 with a hemoglobin 13.7 and a platelet count of 184. D-dimer is at 0.29. Normal coagulation profile. Normal electrolytes. Normal renal function. Her influenza a was positive by PCR. Covid 19 testing is negative and the patient has received Covid 19 vaccination 1 which was in the form of a [employer]. She was infected also with Covid 19 in the past. RSV has not been checked yet. On today's evaluation of 08/22/2022, the patient is feeling slightly better compared to yesterday. She remains on high flow oxygen and currently she is on 40 L with an FiO2 of 40%. Somewhat improved compared to yesterday. Is able to complete full sentences. Remains essentially unchanged same treatment. No new complaints. He remains on Tamiflu. Remains on doxycycline. Remains on IV Solu-Medrol. 08/23/2022, continues to improve and the patient was taken off the high flow oxygen and the patient is currently on 2 L of oxygen by nasal cannula. She was able to shower independently. She remains on Tamiflu. She remains on IV Solu- Medrol. The shortness of breath. Objective - Vital Signs Vital signs: Vital Signs Temp 97.8 F 08/23/22 08:29 Pulse 91 08/23/22 08:29 Resp 18 08/23/22 08:29 BP 141/80 08/23/22 08:29 Pulse Ox 94 L 08/23/22 08:29 FiO2 38 08/22/22 17:13 Intake & Output 08/22/22 08/23/22 08/23/22 18:59 06:59 18:59 Intake Total 118 Balance 118 Intake: Oral 118 Other: Voiding Method Bedside Commode Bedside Commode # Voids 2 2 - Exam Calm and comfortable, able to complete full sentences. She is not using his muscles of breathing. She remains on 2 L O2 nasal cannula Head exam was generally normal. There was no scleral icterus or corneal arcus. Mucous membranes were moist. Neck was supple and without jugular venous distension, thyromegaly, or carotid bruits. Carotids were easily palpable bilaterally. There was no adenopathy. Lungs sounds are showing marked diminished breath sounds bilaterally along with prolongation of exhalation phase of breathing and diffuse bronchospasm and wheeze Cardiac exam revealed the PMI to be normally situated and sized. The rhythm was regular and no extrasystoles were noted during several minutes of auscultation. The first and second heart sounds were normal and physiologic splitting of the second heart sound was noted. There were no murmurs, rubs, clicks, or gallops. Abdominal exam revealed normal bowel sounds. The abdomen was soft, non-tender, and without masses, organomegaly, or appreciable enlargement of the abdominal aorta. Examination of the extremities revealed easily palpable radial, femoral and pedal pulses. There was no cyanosis, clubbing or edema. Examination of the skin revealed no evidence of significant rashes, suspicious appearing nevi or other concerning lesions. Neurologically, the patient is awake and alert and the patient does not have any focal neurological deficit. Cranial nerves are essentially intact. - Labs CBC & Chem 7: 08/20/22 15:14 08/20/22 15:14 Labs: Abnormal Lab Results - Last 24 Hours (Table) 08/22/22 08/22/22 08/22/22 Range/Units 11:55 16:58 20:36 POC Glucose (mg/dL) 138 H 166 H 155 H (70-110) mg/dL 08/23/22 Range/Units 06:03 POC Glucose (mg/dL) 133 H (70-110) mg/dL Microbiology - Last 24 Hours (Table) 08/20/22 15:20 Blood Culture - Preliminary Blood No Growth after 48 hours 08/20/22 15:05 Blood Culture - Preliminary Blood No Growth after 48 hours Assessment and Plan Plan: Acute COPD exacerbation secondary to influenza A-tracheobronchitis Acute hypoxic respiratory failure, initially BiPAP currently on high flow oxygen at 2 L O2 nasal cannula, improving Acute influenza A tracheobronchitis. Noted the patient is nonvaccinated Shortness of breath secondary to above History of smoking tobacco History of daily marijuana smoking Self-reported asthma Plan slightly improved Continue weaning the FiO2 down currently on 2 L O2 nasal cannula Start the patient on DuoNeb nebulized treatments 4 times a day [id number] Keep the patient on high flow oxygen and titrate the flow to maintain a saturation above 90% Start the patient on IV Solu-Medrol 60 mg every 6 hours Start the patient on Tamiflu 75 mg by mouth twice a day Robitussin-DM for cough and congestion Check pro calcitonin leveland the level came back at 0.28 Lovenox for DVT prophylaxis Smoking cessation counseling Will follow
--- NOTE | 2022-08-23 13:49 | P.PN ---
Subjective 61-year-old gentleman female came in with a known history of COPD came in with compensative shortness of breath which is going on for 2 days patient is found to have influenza A patient is on the high flow nasal cannula/ airvo oxygen at this time, patient usually doesn't wear oxygen patient to quit smoking does smoke occasionally 1 cigarettes here and there. Patient doesn't take any home medications. Patient is afebrile doesn't have any leukocytosis. Chest x-ray showed minimal bilateral pleural effusions and the emphysematous changes. 08/22/2022 Patient hasn't been improvement in her overall clinical status, on high flow nasal cannula oxygen. Still remains on high flow at this time. 08/23/2022 Patient hasn't and overall clinical improvement patient is presently unresponsive and possibly can be discharged tomorrow Constitutional: Denied any fatigue denied any fever. Cardio vascular: denied any chest pain, palpitations Gastrointestinal denied any nausea vomiting Pulmonary: Feels much better today Neurologic denied any new focal deficits All inpatient medications were reviewed and appropriate changes in these medications as dictated in the interval history and assessment and plan. PHYSICAL EXAMINATION: GENERAL: The patient is alert and oriented x3, not in any acute distress. Well developed, well nourished. HEENT: Pupils are round and equally reacting to light. EOMI. No scleral icterus. No conjunctival pallor. Normocephalic, atraumatic. No pharyngeal erythema. No thyromegaly. CARDIOVASCULAR: S1 and S2 present. No murmurs, rubs, or gallops. PULMONARY: Diminished air without any wheezing today ABDOMEN: Soft, nontender, nondistended, normoactive bowel sounds. No palpable organomegaly. MUSCULOSKELETAL: No joint swelling or deformity. EXTREMITIES: No cyanosis, clubbing, or pedal edema. NEUROLOGICAL: Gross neurological examination did not reveal any focal deficits. SKIN: No rashes. Assessment and plan -Acute hypoxic respiratory failure secondary to severe COPD exacerbation patient is on empiric antibiotic for secondary bacterial infection patient is also on Tamiflu continue with respiratory support wean off oxygen as tolerated continue with systemic steroids., Inhalational treatments. -Tracheobronchitis bacterial bronchitis cannot be ruled out, patient is on doxycycline -Nicotine use: Counseling was provided patient a very quit smoking with does smoke occasionally DVT prophylaxis: Lovenox GI prophylaxis: Pepcid Objective - Vital Signs Vital signs: Vital Signs Temp 98.0 F 12/18/22 12:00 Pulse 80 08/23/22 12:20 Resp 20 08/23/22 12:00 BP 158/97 08/23/22 12:00 Pulse Ox 97 08/23/22 12:00 FiO2 38 08/22/22 17:13 Intake & Output 08/22/22 08/23/22 08/23/22 18:59 06:59 18:59 Intake Total 118 Balance 118 Intake: Oral 118 Other: Voiding Method Bedside Commode Bedside Commode # Voids 2 2 - Labs CBC & Chem 7: 08/20/22 15:14 08/20/22 15:14 Labs: Abnormal Lab Results - Last 24 Hours (Table) 08/22/22 08/22/22 08/23/22 Range/Units 16:58 20:36 06:03 POC Glucose (mg/dL) 166 H 155 H 133 H (70-110) mg/dL 08/23/22 Range/Units 11:46 POC Glucose (mg/dL) 136 H (70-110) mg/dL Microbiology - Last 24 Hours (Table) 08/20/22 15:20 Blood Culture - Preliminary Blood No Growth after 48 hours 08/20/22 15:05 Blood Culture - Preliminary Blood No Growth after 48 hours
[2022-08-23 16:48] LABS: Glucose,Whole Blood 135 mg/dL (70-110)
[2022-08-23] MEDS: ACETAMINOPHEN TAB 325 MG TAB PO PRN (17:27)
[2022-08-23 20:04] LABS: Glucose,Whole Blood 179 mg/dL (70-110)
[2022-08-24 05:59] LABS: Glucose,Whole Blood 136 mg/dL (70-110)
[2022-08-24] MEDS: methylPREDNISolone SOD SUCCI 125 MG/2 ML VIAL IV SCH (06:43)
[2022-08-24] MEDS: ZINC SULFATE 220 MG CAP PO SCH (08:47)
[2022-08-24] MEDS: OSELTAMIVIR 75 MG CAP PO SCH (08:47)
[2022-08-24] MEDS: FAMOTIDINE 20 MG TAB PO SCH (08:47)
[2022-08-24] MEDS: ENOXAPARIN 40 MG/0.4 ML SYRINGE SQ SCH (08:48)
[2022-08-24] MEDS: DOXYCYCLINE 100 MG CAP PO SCH (08:48)
[2022-08-24] MEDS: IPRATROPIUM-ALBUTEROL 3 ML NEB INHALATION SCH ×2 (08:59→11:39)
[2022-08-24 11:40] LABS: Glucose,Whole Blood 143 mg/dL (70-110)
[2022-08-24 11:53] VITALS: BP 142/71; PULSE 109; RESP 18; TEMP 98.3
[2022-08-24] MEDS: ACETAMINOPHEN TAB 325 MG TAB PO PRN (12:15)
--- NOTE | 2022-08-24 14:24 | P.PN ---
Subjective Progress Note Date: 08/24/22 Principal diagnosis: Acute exacerbation of COPD and acute influenza A tracheobronchitis A 61-year-old -[place] female patient, chronic smoker with known history of COPD with is not using any form of maintenance as for medications on outpatient basis. The patient has been smoking since young age and her last cigarette was she days ago. She does not utilize home O2. She states that her condition was essentially stable and she was having some mild exertional dyspnea still around several family members at home came down with a flu. The patient herself felt sick around 3 days ago and condition progressively got worse and currently she is coming into the hospital with increasing dyspnea, chest tightness and wheezing. She was found to be in significant respiratory distress. Initially placed on a BiPAP and currently she is on high flow oxygen at 50 L with an FiO2 of 35%. She is feeling better although she is still bronchospastic and wheezy. She has a congested cough. No altered mentation. Chest wall pain has been so due to coughing. The patient had a chest x-ray that showed hyperinflation. No acute airspace disease. ProBNP is nonelevated. Cardiac enzymes are normal. The WBC count at 6.4 with a hemoglobin 13.7 and a platelet count of 184. D-dimer is at 0.29. Normal coagulation profile. Normal electrolytes. Normal renal function. Her influenza a was positive by PCR. Covid 19 testing is negative and the patient has received Covid 19 vaccination 1 which was in the form of a [employer]. She was infected also with Covid 19 in the past. RSV has not been checked yet. On today's evaluation of 08/22/2022, the patient is feeling slightly better compared to yesterday. She remains on high flow oxygen and currently she is on 40 L with an FiO2 of 40%. Somewhat improved compared to yesterday. Is able to complete full sentences. Remains essentially unchanged same treatment. No new complaints. He remains on Tamiflu. Remains on doxycycline. Remains on IV Solu-Medrol. 08/23/2022, continues to improve and the patient was taken off the high flow oxygen and the patient is currently on 2 L of oxygen by nasal cannula. She was able to shower independently. She remains on Tamiflu. She remains on IV Solu- Medrol. The shortness of breath. Reevaluated today on 08/24/22, patient is feeling better, breathing easier, she is actually on room air, not in any distress, hence I will recommend that the patient could be considered for discharge home today. She is to go home on Tamiflu, bronchodilators in the form of DuoNeb updrafts, Symbicort, and a course of prednisone 30 mg tapered over 2 weeks Objective - Vital Signs Vital signs: Vital Signs Temp 98.3 F 08/24/22 11:52 Pulse 109 H 08/24/22 11:52 Resp 18 08/24/22 11:52 BP 142/71 08/24/22 11:52 Pulse Ox 98 08/24/22 11:52 FiO2 38 08/22/22 17:13 Intake & Output 08/23/22 08/24/22 08/24/22 18:59 06:59 18:59 Intake Total 540 240 Balance 540 240 Intake: Oral 540 240 Other: Voiding Method Bedside Commode Bedside Commode Toilet # Voids 3 2 2 - Exam Physical Exam: Revealed a 61-year-old female in no distress on room air Head: Atraumatic normocephalic HEENT:[Neck is supple.] [No neck masses.] [No thyromegaly.] [No JVD.] Chest: Diminished breath sound bilaterally no crackles or rhonchi or wheezes Cardiac Exam: [Normal S1 and S2, no S3 gallop, no murmur.] Abdomen: [Soft, nontender, no megaly, no rebound, no guarding, normal bowel sounds.] Extremities: [No clubbing, no edema, no cyanosis.] Neurological Exam: [No focal neurologic deficit.] Psychiatric: Normal mood affect and normal mental status examination. Skin: No rashes - Labs CBC & Chem 7: 08/20/22 15:14 08/20/22 15:14 Labs: Abnormal Lab Results - Last 24 Hours (Table) 08/23/22 08/23/22 08/24/22 Range/Units 16:46 20:02 05:58 POC Glucose (mg/dL) 135 H 179 H 136 H (70-110) mg/dL 08/24/22 Range/Units 11:38 POC Glucose (mg/dL) 143 H (70-110) mg/dL Microbiology - Last 24 Hours (Table) 08/20/22 15:20 Blood Culture - Preliminary Blood No Growth after 72 hours 08/20/22 15:05 Blood Culture - Preliminary Blood No Growth after 72 hours Assessment and Plan Assessment: Impression: Acute hypoxic respiratory failure secondary to acute exacerbation of COPD, and acute influenza A tracheobronchitis. History of COPD History of daily marijuana use Acute influenza tracheobronchitis, and unfractionated. Recommendation: Consider transitioning the patient to oral prednisone and discontinue Solu- Medrol taper the prednisone from 30 mg down to 0 mg over 2 weeks Continue updrafts at home DuoNeb Symbicort 160/4.52 puffs twice a day Continue doxycycline 100 mg by mouth twice a day for 10 days Will clear the patient to be discharged and follow-up on outpatient Time with Patient: Less than 30
[2022-08-24] MEDS ORDERED: SYMBICORT 160-4.5 MCG INHALER INHALATION SCH (20:00)
[2022-08-25] MEDS ORDERED: predniSONE 10 MG TAB PO SCH (09:00)
--- NOTE | 2022-08-26 04:12 | P.DS ---
Providers Date of admission: 08/20/22 17:33 Expected date of discharge: 08/24/22 Attending physician: Godwin Rosales Consults: 08/20/22 17:33 Consult Physician Routine Consulting Provider: Angeline Mccurdy Consult Reason/Comments: COPD exacerbation, influenza type A Do you want consulting provider notified?: Yes Primary care physician: Stated None Hospital Course: Final diagnosis -Acute hypoxic respiratory failure secondary to severe COPD exacerbation and also secondary to influenza -Tracheobronchitis bacterial bronchitis cannot be ruled out, patient is on doxycycline -Nicotine use: Counseling was provided -DVT prophylaxis -GI prophylaxis Discharge disposition Patient is being discharged in a stable condition with guarded prognosis to home. Patient will follow-up with in the outpatient setting upon discharge. Patient is to follow-up with pulmonary outpatient as scheduled. Patient will continue on a short course of doxycycline twice daily along with Tamiflu to complete the course. Patient will continue prednisone taper on discharge. Total time taken is greater than 35 minutes. Hospital course This is a 61-year-old female who was recently admitted shortness of breath with COPD exacerbation requiring high flow oxygen also found to have influenza. Patient being followed closely by pulmonary recommended close outpatient follow- up for further testing. Patient was continued on doxycycline along with Tamiflu and prednisone showing significant improvement in respiratory status currently on room air. Patient with some anxiety and continued dyspnea with exertion although reports to feeling much better and would like to go home. Patient reports she is currently between jobs and has no insurance and working on reestablishing so she can follow-up with a primary care provider. Encouraged to continue to quit smoking. Currently no reports of chest pain, worsening shortness of breath, or palpitations. Patient is afebrile. No reports of nausea or vomiting and patient is tolerating diet. Patient will be discharged home today. Guarded prognosis. Physical exam: Gen: This is a 61-year-old female who is awake, alert and oriented 3, well- developed, well-nourished, thin built HEENT: Head is atraumatic, normocephalic. Pupils equal, round. Sclerae is anicteric. NECK: Supple. No JVD. No lymphadenopathy. No thyromegaly. LUNGS: Distant breath sounds bilaterally with some scattered rhonchi and expiratory wheezes noted . No intercostal retractions. HEART: Regular rate and rhythm. No murmur. ABDOMEN: Soft. Bowel sounds are present. No masses. No tenderness. EXTREMITIES: No pedal edema. No calf tenderness. NEUROLOGICAL: Patient is awake, alert and oriented x3. Cranial nerves 2 through 12 are grossly intact. Please refer to medication reconciliation sheet for a list of medications. The impression and plan of care has been dictated by Amanda Kerns, Nurse Practitioner as directed. Dr. August MD I have performed a history and examination and MDM of this patient, discussed the same with the dictator, and agree with the dictator's assessment and plan as written ,documented as a scribe. Based on total visit time, I have performed more than 50% of the visit. Patient Condition at Discharge: Fair Plan - Discharge Summary Discharge Rx Participant: Yes New Discharge Prescriptions: New Ipratropium-Albuterol Nebulize [Duoneb 0.5 mg-3 mg/3 ml Soln] 3 ml INHALATION RT-QID 30 Days #120 each predniSONE 10 mg PO DIRECTED #30 tab Doxycycline [Vibramycin] 100 mg PO BID 5 Days #10 cap ALPRAZolam [Xanax] 0.25 mg PO BID PRN #9 tab PRN Reason: Anxiety HYDROcodone/APAP 5-325MG [[place] 5-325] 1 each PO Q8HR PRN #9 tab PRN Reason: Pain Budesonide-Formot 160-4.5 Mcg [Symbicort 160-4.5 Mcg Inhaler] 2 puff INHALATION RT-BID 30 Days #1 each Oseltamivir [Tamiflu] 75 mg PO Q12HR 2 Days #4 cap Acetaminophen Tab [Tylenol] 650 mg PO Q4HR PRN tab PRN Reason: Mild Pain Or Fever > 100.5 Continue Zinc Gluconate [Zinc] 50 mg PO DAILY Guaifenesin/Dextromethorphan [Robitussin Cough-Chest Dm Liq] 20 ml PO Q4H PRN PRN Reason: cough & congestion Discharge Medication List Guaifenesin/Dextromethorphan [Robitussin Cough-Chest Dm Liq] 20 ml PO Q4H PRN 08/20/22 [History] Zinc Gluconate [Zinc] 50 mg PO DAILY 08/20/22 [History] ALPRAZolam [Xanax] 0.25 mg PO BID PRN #9 tab 08/24/22 [Rx] Acetaminophen Tab [Tylenol] 650 mg PO Q4HR PRN tab 08/24/22 [Rx] Budesonide-Formot 160-4.5 Mcg [Symbicort 160-4.5 Mcg Inhaler] 2 puff INHALATION RT-BID 30 Days #1 each 08/24/22 [Rx] Doxycycline [Vibramycin] 100 mg PO BID 5 Days #10 cap 08/24/22 [Rx] HYDROcodone/APAP 5-325MG [[place] 5-325] 1 each PO Q8HR PRN #9 tab 08/24/22 [Rx] Ipratropium-Albuterol Nebulize [Duoneb 0.5 mg-3 mg/3 ml Soln] 3 ml INHALATION RT-QID 30 Days #120 each 08/24/22 [Rx] Oseltamivir [Tamiflu] 75 mg PO Q12HR 2 Days #4 cap 08/24/22 [Rx] predniSONE 10 mg PO DIRECTED #30 tab 08/24/22 [Rx] Follow up Appointment(s)/Referral(s): Maia Johnson MD [STAFF PHYSICIAN] - 1 Week ([facility] from [facility] will call you tomorrow to set up follow up appointment) Angeline Mccurdy MD [STAFF PHYSICIAN] - 09/23/22 1:45 pm Patient Instructions/Handouts: COPD (Chronic Obstructive Pulmonary Disease) (DC) Activity/Diet/Wound Care/Special Instructions: Activity limited until follow up follow up with pcp to establish follow up with pulmonary in 1-2 weeks avoid smoking continue taking medications until finished Discharge Disposition: HOME SELF-CARE
== END 2022-08-24 14:41 | disposition home or self-care (01) | DRG 193 ==
LOC: EC 15:00 → 3SCARD 17:33
PROVIDERS: ADMIT Hospitalist; ATTEND Hospitalist
PROC: 5A09457 Assistance with Respiratory Ventilation, 24-96 Consecutive Hours, Continuous Positive Airway Pressure (ICD-10-PCS; principal; 2022-08-20)
DX: J10.1 Influenza due to other identified influenza virus with other respiratory manifestations (principal); J96.01 Acute respiratory failure with hypoxia; J44.1 Chronic obstructive pulmonary disease with (acute) exacerbation; Z20.822 Contact with and (suspected) exposure to COVID-19; E11.9 Type 2 diabetes mellitus without complications; J20.8 Acute bronchitis due to other specified organisms; F41.9 Anxiety disorder, unspecified; Z23 Encounter for immunization; Z86.16 Personal history of COVID-19; F17.210 Nicotine dependence, cigarettes, uncomplicated; Z71.6 Tobacco abuse counseling
CPT/HCPCS: 36415; 71046; 80053; 83605; 83735; 83880; 84145; 84484; 85025; 85379; 85610; 85730; 87040; 87502; 87634; 87635; 93005; 94640; 94660; 94760; 96365; 96375; 96376; 99291